=== PATIENT | female | born 1970 | race Caucasian/White ===

== ENCOUNTER 2019-10-26 08:56 | Outpatient (CLI) | payer OTHER, SELFPAY ==
--- NOTE | ~2019-10-26 | XR_ITS ---
XR knee LT 3V DATE: 10/26/2019 09:25 INDICATION: Left knee pain TECHNIQUE: [place] and standing AP and lateral views COMPARISON: None FINDINGS: No fracture or dislocation or joint effusion. No periosteal reaction or bone destruction. J oint spaces are preserved. No radiopaque intra-articular loose body or chondrocalcinosis. IMPRESSION: Normal examination Reviewed, dictated and finalized at location A. IMPRESSION: Normal examination
== END 2019-10-26 08:57 ==
PROVIDERS: PCP Family Medicine; Visit Provider Nurse Practitioner Family
DX: M25.562 Pain in left knee (principal)
CPT/HCPCS: 73562

== ENCOUNTER → 2020-07-03 14:48 | Outpatient (CLI) | payer OTHER, SELFPAY ==
--- NOTE | ~2020-07-03 | MM_ITS ---
EXAMINATION: MM screening [facility] BI w artie HISTORY: Screening mammogram TECHNIQUE: Craniocaudal and mediolateral oblique 3-D tomosynthesis images were obtained and synthetic 2-D images were generated. CAD analysis was submitted and interpreted. COMPARISON: 04/23/2019 BREAST PARENCHYMAL COMPOSITION: The breasts are heterogeneously dense, which may obscure small masses . FINDINGS: Stable focal asymmetry is present in the upper outer quadrant of the left breast. There is no evidence of suspicious mass, calcification, or architectural distortion to suggest malignancy in e ither breast. There has been no suspicious interval change. IMPRESSION: 1. No mammographic evidence of malignancy. 2. Recommend routine screening mammography in one year. BI-RADS Category 2: Benign finding(s). Reviewed, dictated and finalized at location A. 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
== END ==
PROVIDERS: PCP Family Medicine; Visit Provider Obstetrics & Gynecology
DX: Z12.31 Encounter for screening mammogram for malignant neoplasm of breast (principal)
CPT/HCPCS: 77063; 77067

== ENCOUNTER 2020-08-29 00:56 | Outpatient (CLI) | payer OTHER, SELFPAY ==
[2020-08-29 18:46] LABS: SARS-CoV-2 RNA PCR Negative
== END 2020-08-29 00:57 | disposition home or self-care (01) ==
LOC: ANHCOVIDDT 00:56
PROVIDERS: PCP Family Medicine; Visit Provider Obstetrics & Gynecology
DX: Z01.812 Encounter for preprocedural laboratory examination (principal); Z20.822 Contact with and (suspected) exposure to COVID-19
CPT/HCPCS: C9803; U0003; U0005

== ENCOUNTER 2020-09-01 02:38 | Day surgery (SDC) | payer OTHER, SELFPAY ==
[2020-08-21 15:16] VITALS: BMI 24.9
[2020-09-01] MEDS: ACETAMINOPHEN 500 MG TABLET 1000 MG PO (06:17)
[2020-09-01] MEDS: LACTATED RINGERS 1,000 ML 30 ML IV CONT (06:18)
--- NOTE | 2020-09-01 06:59 | P.PNAN_ITS ---
Anes - Initial Pre Proc Eval Procedure: Operation Date: 09/01/20 07:30 Proposed Procedures p Hysteroscopy, Novasure Endometrial Ablation - Margarita Garzon MD Date/Time: 09/01/20 06:59 Surgeon: Margarita Garzon MD Pre Op Diagnosis: menorrhaghia Patient Data Age: 50 Gender: F Height: 5 ft 4 in Weight: 65.9 kg Allergies Allergy/AdvReac Type Severity Reaction Status Date / Time No Known Allergies Allergy Verified 08/21/20 15:00 Home Medications Medication Instructions Recorded Confirmed Type cyclobenzaprine 10 mg PO PRN PRN 08/21/20 08/25/20 History ibuprofen 800 mg PO PRN 08/21/20 08/25/20 History Patient hx anesthesia problems: none Family hx anesthesia problems: none [facility] Past Medical History Medical History BMI 26.0-26.9,adult Family History Family History Grandparent Family history of lung cancer Mother Family history of type 2 diabetes mellitus Father , Prostate cancer No problems noted. Sibling No problems noted. 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 Spiritual care concerns: No Anes - Eval Final PreProcedure Day of Procedure 09/01/20 06:59 Patient weight: normal Heart: regular rate and rhythm Lungs: clear to auscultation Airway: Mallampati scale class II Neurological: alert and oriented Last oral intake: >/= 8 hours ASA classification: II Emergent: no Anesthetic plan: proceed Anesthesia type and monitoring: general GIVS and standard monitoring Informed Consent: The patient's anesthetic plan and its attendant risks and benefits were discussed with the patient/family/POA. Questions were solicited and answers provided to the satisfaction of the patient/family/POA.
[2020-09-01 07:12] VITALS: BP 124/74; PULSE 79; RESP 20; TEMP 37.1; O2SAT 100
--- NOTE | 2020-09-01 07:17 | PM.IMHP ---
H&P: HPI History of Present Illness Date/Time: 09/01/20 07:17 Chief Complaint: menorrhagia Narrative: Nydia Pate is a 50 year old female who presents for HSC and endometrial ablation. She has a longstanding history of heavy bleeding. had HSC polypectomy years ago that didn't help. Recent EMB benign and recent US showed 1.5 polyp vs fibroid at fundus and one ovarian cyst with one septation. Review of Systems Review of Systems: All systems reviewed & are unremarkable except as noted in HPI and below (HPI) [facility] Past Medical History Medical History BMI 26.0-26.9,adult Family History Family History Grandparent Family history of lung cancer Mother Family history of type 2 diabetes mellitus Father , Prostate cancer No problems noted. Sibling No problems noted. 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 Spiritual care concerns: No Meds Home Medications and Allergies Home Medications Medication Instructions Recorded Confirmed Type cyclobenzaprine 10 mg PO PRN PRN 08/21/20 08/25/20 History ibuprofen 800 mg PO PRN 08/21/20 08/25/20 History Allergies Allergy/AdvReac Type Severity Reaction Status Date / Time No Known Allergies Allergy Verified 09/01/20 07:05 Vital Signs Vital Signs - 24 hr 09/01/20 07:12 Temperature 98.8 F Pulse Rate 79 Respiratory Rate 20 Blood Pressure 124/74 Pulse Oximetry 100 Exam Const: General: no acute distress Resp: Effort & Inspection: normal respiratory effort Auscultation: clear to auscultation bilaterally Cardio: Rate: regular rate Rhythm: regular rhythm GI: GI Palp: Yes Soft to palpation Skin: General skin exam: normal color and no rashes or lesions noted Extrem: General: normal to inspection Psych: Mental Status: mental status grossly normal Assessment and Plan Additional Plan Discussed RBA and consented for HSC and ablation. Discussed procedure, recovery, follow up, precautions. Will proceed.
--- NOTE | 2020-09-01 07:28 | WPDHPUPDATE1 ---
History and Physical Update Update Date/Time: 09/01/20 07:28 History and Physical has been reviewed, including an updated exam of the patient. There are NO changes in the patient's condition since my H and P 3 minutes ago. Risks, benefits, and alternatives have been discussed and questions answered. Patient agrees to proceed with procedure.
--- NOTE | 2020-09-01 08:03 | SUR.OPER ---
450ml ns in, 400ml out. aware
--- NOTE | 2020-09-01 08:08 | PM.PROC ---
Procedure Note - Detailed Date of procedure: 09/01/20 Pre-op diagnosis: menorrhaghia Post-op diagnosis: same Procedure performed: hysteroscopy with endometrial ablation Description of procedure: The patient was taken to the operating room where she received MAC anesthesia. She was placed in dorsal lithotomy position in [facility]. Exam under anesthesia revealed an anteverted uterus. She was prepped and draped in normal fashion. A speculum was placed and the cervix was grasped with a single tooth tenaculum. A paracervical block was done with 10cc 0.25% marcaine. The uterus sounded to 8cm and the cervical length was 4cm giving a uterine length of 4cm. The cervix was sequentially dilated to accomodate the hysteroscope. The uterus was visualized, noting normal tubal ostia bilaterally and a fundal polyp. The scope was removed and the Novasure device was inserted. The uterine width was calculated to be 3.1cm. The deviced was activated after testing for a seal. The device ran for just short of 2 minutes. The hysteroscope was reinserted, noting an even and complete burn. The tenaculum was removed and the cervix made hemostatic with pressure. The speculum was removed. The patient was awakened from anesthesia and taken to the recovery room in good condition. Anesthesia: MAC Surgeon: Margarita Garzon MD Metal Pickling Equipment Operator: none Estimated blood loss (mL): 10 IV fluids (mL): 450 Drains: No Packing: No Pathology: none sent Complications: No immediate complications Condition: stable Disposition: floor Findings: see above
[2020-09-01 08:09] VITALS: BP 123/68; PULSE 83; RESP 14; O2SAT 98
[2020-09-01 08:30] VITALS: BP 115/67; PULSE 70; RESP 14; O2SAT 98
[2020-09-01 09:00] VITALS: BP 138/73; PULSE 72; RESP 14
== END 2020-09-01 09:15 | disposition home or self-care (01) ==
PROVIDERS: PCP Family Medicine; Visit Provider Obstetrics & Gynecology
PROC: 0U5B8ZZ Destruction of Endometrium, Via Natural or Artificial Opening Endoscopic (ICD-10-PCS; CPT 58563; principal; 2020-09-01 07:30)
DX: N92.0 Excessive and frequent menstruation with regular cycle (principal); Z87.891 Personal history of nicotine dependence
CPT/HCPCS: 58563; A9270; C9803; J2250; J2405; J2704; J3010; J7030; J7120; U0003; U0005

== ENCOUNTER → 2020-11-26 07:57 | Outpatient (CLI) | payer OTHER, SELFPAY ==
[2020-11-26 21:08] LABS: SARS-CoV-2 RNA PCR Negative
== END ==
PROVIDERS: PCP Family Medicine; Visit Provider Physician Assistant Medical
DX: R68.89 Other general symptoms and signs (principal); Z20.822 Contact with and (suspected) exposure to COVID-19
CPT/HCPCS: C9803; U0003; U0005

== ENCOUNTER → 2021-04-03 01:45 | Outpatient (CLI) | payer OTHER, SELFPAY ==
[2021-04-03 20:12] LABS: SARS-CoV-2 RNA PCR Positive
== END ==
PROVIDERS: PCP Family Medicine; Visit Provider Physician Assistant Medical
DX: U07.1 COVID-19 (principal); R50.9 Fever, unspecified; R68.89 Other general symptoms and signs
CPT/HCPCS: C9803; U0003; U0005

== ENCOUNTER 2021-10-21 11:54 | Outpatient (CLI) | payer OTHER, SELFPAY ==
--- NOTE | ~2021-10-21 | XR_ITS ---
EXAMINATION: XR hip BI 2V w AP pelvis DATE: 10/21/2021 12:07 INDICATION: Bilateral hip pain TECHNIQUE: AP view the pelvis and two views of each hip were obtained. COMPARISON: None. FINDINGS: Bone alignment is normal. There is no fracture. There are phleboliths of the pelvis. IMPRESSION: 1. No acute osseous abnormality. Reviewed, dictated and finalized at location B. IC HEALTH ADMINISTRATOR
== END 2021-10-21 11:55 ==
LOC: MICIMG 11:55
PROVIDERS: PCP Physician Assistant Medical; Visit Provider Physician Assistant Medical
DX: G89.29 Other chronic pain (principal); M25.551 Pain in right hip; M25.552 Pain in left hip
CPT/HCPCS: 73521

== ENCOUNTER → 2021-12-23 08:45 | Outpatient (CLI) | payer OTHER, SELFPAY ==
--- NOTE | ~2021-12-23 | MR_ITS ---
EXAMINATION: MR lumbar spine wo con DATE: 12/23/2021 09:17 INDICATION: M54.42 - Lumbago with sciatica, left side . TECHNIQUE: Magnetic resonance imaging (MRI) of the lumbar spine was performed without intravenous con trast. Sequences included sagittal T2-weighted FSE, sagittal T2-weighted FS FSE, sagittal T1-weighted FSE, and axial T2-weighted FSE. COMPARISON: None FINDINGS: The last fully formed and hydrated disc is designated L5-S1. The marrow signal is benign an d homogenous. Conus terminates at L1. Mild dehydration at L4-5 and L5-S1. The following disc levels a re specifically discussed: T11-T12: Mild diffuse disc bulge. There is no facet joint osteoarthritis. There is no neural foramina l stenosis. There is no central canal stenosis. T12-L1: The disc does not extend beyond the endplate margin. There is no facet joint osteoarthritis. There is no neural foraminal stenosis. There is no central canal stenosis. L1-L2: Mild diffuse disc bulge. There is mild facet joint osteoarthritis. There is no neural foramina l stenosis. There is no central canal stenosis. L2-L3: Mild diffuse disc bulge. There is mild facet joint osteoarthritis. There is no neural foramina l stenosis. There is no central canal stenosis. L3-L4: Mild diffuse disc bulge. There is moderate facet joint osteoarthritis. There is no neural fora juliocesar stenosis. There is no central canal stenosis. L4-L5: Mild diffuse disc bulge. There is moderate facet joint osteoarthritis. There is no neural fora juliocesar stenosis. There is no central canal stenosis. L5-S1: Mild diffuse disc bulge. Circumferentially oriented annular rent in the posterior disc. There is moderate facet joint osteoarthritis. There is no neural foraminal stenosis. There is no central ca nal stenosis. IMPRESSION: 1. Circumferentially oriented annular rent in the posterior L5-S1 disc. 2. Moderate facet arthropathy in the lower lumbar spine. 3. Mild multilevel degenerative disc disease. Reviewed, dictated and finalized at location K.
== END ==
PROVIDERS: PCP Family Medicine; Visit Provider Nurse Practitioner Family
DX: M54.42 Lumbago with sciatica, left side (principal); G89.29 Other chronic pain; M25.551 Pain in right hip; M25.552 Pain in left hip; M51.36 Other intervertebral disc degeneration, lumbar region
CPT/HCPCS: 72148

== ENCOUNTER 2023-01-04 09:08 | Outpatient (CLI) | payer OTHER, SELFPAY ==
--- NOTE | ~2023-01-04 | MMUS_ITS ---
EXAMINATION: MM diagnostic ti BI w artie, US breast LT limited HISTORY: Palpable lump of the lower inner quadrant of the left breast. TECHNIQUE: Craniocaudal, mediolateral, and mediolateral oblique 3-D tomosynthesis images of the breas ts were performed and synthetic 2-D images were generated. CAD analysis was submitted and interpreted . High resolution limited left breast ultrasound was performed. COMPARISON: 07/03/2020, 04/23/2019 BREAST PARENCHYMAL COMPOSITION: The breasts are heterogeneously dense, which may obscure small masses . FINDINGS: MAMMOGRAPHIC FINDINGS: No suspicious mass, calcification, or architectural distortion are identified in either breast to sug gest malignancy. There has been no suspicious interval change. No mammographic correlate is identifie d for the reported palpable abnormality of the left breast. ULTRASOUND: There is no evidence of focal abnormal solid or cystic mass in the vicinity of the reported palpable abnormality of concern in the left breast. IMPRESSION: 1. No specific mammographic or sonographic correlate is identified for the reported palpable abnormal ity of concern. Further evaluation at this time should be based on clinical assessment. Continued fol low-up physical examination is recommended. 2. Recommend routine screening mammography in one year. BI-RADS Category 1: Negative Reviewed, dictated and finalized at location A. IMPRESSION: 1. No specific mammographic or sonographic correlate is identified for the repo rted palpable abnormality of concern. Further evaluation at this time should be based on clinical assessment. Continued follow-up physical examination is lyudmila mmended. 2. Recommend routine screening mammography in one year. BI-RADS Category 1: Negative
== END 2023-01-04 09:09 ==
LOC: MICIMG 09:10
PROVIDERS: PCP Nurse Practitioner Obstetrics & Gynecology; Visit Provider Nurse Practitioner Obstetrics & Gynecology
DX: N63.20 Unspecified lump in the left breast, unspecified quadrant (principal); N64.4 Mastodynia
CPT/HCPCS: 76642; 77062; 77066; G0279

== ENCOUNTER 2024-09-21 07:15 | Outpatient (CLI) | payer OTHER, SELFPAY ==
--- NOTE | ~2024-09-21 | MM_ITS ---
EXAMINATION: MM screening ti BI w artie HISTORY: Screening mammogram TECHNIQUE: Craniocaudal and mediolateral oblique 3-D tomosynthesis images were obtained and synthetic 2-D images were generated. CAD analysis was submitted and interpreted. COMPARISON: 01/04/2023, 07/03/2020, 04/23/2019 BREAST PARENCHYMAL COMPOSITION:Dense: The breasts are heterogeneously dense, which may obscure small masses. FINDINGS: No suspicious mass, calcification, or architectural distortion are identified in either dilan ast to suggest malignancy. There has been no suspicious interval change. IMPRESSION: No mammographic evidence of malignancy. Recommend routine screening mammography in one year. BI-RADS Category 1: Negative Reviewed, dictated and finalized at location . 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
== END 2024-09-21 07:16 | disposition home or self-care (01) ==
LOC: MICIMG 07:16
PROVIDERS: PCP Family Medicine; Visit Provider Obstetrics & Gynecology
DX: Z12.31 Encounter for screening mammogram for malignant neoplasm of breast (principal)
CPT/HCPCS: 77063; 77067